=== PATIENT | male | born 1940 ===

== ENCOUNTER 2017-05-09 14:12 | Outpatient (CLI) | payer OTHER ==
[~2017-05-09 14:12] MED LIST: ACETAMINOOPHEN-1 TAB PO; ATIVAN2 M1 PO; CARDURA1 MG PO; CLONAZEPAM1 MG PO; COZAAR50 MG PO; DOCUSATE SODIU100 MG PO; GABAPENTIN800 MG PO; MINUS WEIGHT P1 EACH PO; PAXIL10 MG/5 ML PO; PEPCID40 MG PO; PERCOCET 5/3251 TAB PO; PREVACID30 MG PO; PROVENTIL0.5 ML/2.5 IH
== END 2017-05-09 14:19 | disposition home or self-care (01) ==
LOC: RAD 14:12
DX: M50.30 Other cervical disc degeneration, unspecified cervical region (principal); Z98.1 Arthrodesis status